=== PATIENT | female | born 1955 | race Caucasian/White ===

== ENCOUNTER 2017-03-27 08:36 | Inpatient (IN) | payer OTHER ==
[2017-03-27] MEDS: IPRATROPIUM (NEB) 0.5 MG/2.5 ML AMP INH (09:59)
[2017-03-27] MEDS: ALBUTEROL 0.5% (NEB) 2.5 MG/0.5 ML AMP INH (09:59)
[2017-03-27] MEDS: METHYLPREDNISOLONE 125 MG INJ IV (10:27)
[2017-03-27] MEDS: MAGNESIUM SULFATE 2 GM/50 ML 50 ML IVPB (10:27)
[2017-03-27] MEDS: FUROSEMIDE 40 MG INJ IV (10:28)
[2017-03-27] MEDS: ASPIRIN 81 MG TAB PO (10:28)
[2017-03-27 10:54] LABS: ADD MAN DIFF? NO
[2017-03-27 10:59] LABS: WHITE BLOOD COUNT 6.4 10^3/ul (4.8-10.8)
[2017-03-27 10:59] LABS: BASOPHILS % 0.5 % (0.0-2.0); EOSINOPHILS # 0.2 10^3/ul (0.0-0.5); EOSINOPHILS % 2.7 % (0.0-7.0); HEMATOCRIT 41.3 % (37.0-47.0); HEMOGLOBIN 12.6 g/dl (12.0-16.0); LYMPHOCYTES # 1.7 10^3/ul (0.8-2.9); LYMPHOCYTES % 26.4 % (15.0-51.0); MEAN CORPUSCULAR HEMOGLOBIN 32.3 pg (29.0-33.0); MEAN CORPUSCULAR HGB CONC 30.5 g/dl (32.0-37.0); MEAN CORPUSCULAR VOLUME 105.9 fl (82.0-101.0); MEAN PLATELET VOLUME 9.7 fl (7.4-10.4); MONOCYTE # 0.7 10^3/ul (0.3-0.9); MONOCYTES % 10.8 % (0.0-11.0); NEUTROPHIL # 3.8 10^3/ul (1.6-7.5); NEUTROPHILS % 59.3 % (39.0-77.0); PLATELET COUNT 144 10^3/UL (140-415); RED CELL DISTRIBUTION WIDTH 13.3 % (11.5-14.5)
[2017-03-27 11:25] LABS: ALBUMIN/GLOBULIN RATIO 1.06
[2017-03-27 11:28] LABS: ALANINE AMINOTRANSFERASE 52 IU/L (13-69); ALBUMIN 3.2 g/dl (3.3-4.9); ALKALINE PHOSPHATASE 136 IU/L (42-121); ASPARTATE AMINO TRANSFERASE 54 IU/L (15-46); BILIRUBIN,INDIRECT 0.3 mg/dl (0-1.1); BILIRUBIN,TOTAL 0.3 mg/dl (0.2-1.3); BLOOD UREA NITROGEN 8 mg/dl (7-20); CHLORIDE 91 mmol/L (97-110); CREATININE 1.15 mg/dl (0.44-1.00); GLUCOSE 107 mg/dl (70-220); LIPASE 95 U/L (23-300); POTASSIUM 4.1 mmol/L (3.5-5.1); SODIUM 139 mmol/L (135-144); TOTAL PROTEIN 6.2 g/dl (6.1-8.1)
[2017-03-27 11:42] LABS: ANION GAP 12 (8-16)
[2017-03-27 11:46] LABS: CARBON DIOXIDE 40 mmol/L (21-31)
[2017-03-27 11:50] LABS: B-TYPE NATRIURETIC PEPTIDE 252 PG/ML (0-125)
[2017-03-27 11:55] LABS: TROPONIN-I < 0.012 ng/ml (0.00-0.12)
[2017-03-27 12:15] LABS: AADO2 Arterial 74.7 mmHg (7.0-24.0); Allen Test ACCEPTAB; Arterial Base Excess 9.5 mmol/L (-3.0-3); Arterial Blood Gas Oxygen Sat 87.5 mmHG (95.0-98.0); Arterial COHb 2.1 % (0.0-3.0); Arterial Fraction of Oxyhgb 85.4 % (93.0-99.0); Arterial MetHb 0.3 % (0.0-1.5); Arterial Total Hemglobin 13.5 g/dl (12.0-18.0); Arterial pCO2 88.8 mmhg (35-45); MODE NASAL CANNULA; Site Right Radial
[2017-03-27] MEDS ORDERED: VANCOMYCIN IV PER PHARMACY XX (14:30)
[2017-03-27] MEDS ORDERED: ALBUTEROL/IPRATROPIUM (NEB) 3 ML AMP HHN (14:30)
[2017-03-27] MEDS ORDERED: NACL 0.9% 3 ML SYG IV (15:00)
[2017-03-27] MEDS ORDERED: ONDANSETRON 4 MG INJ IV (15:00)
[2017-03-27] MEDS ORDERED: ACETAMINOPHEN 325 MG TAB PO (15:00)
[2017-03-27] MEDS ORDERED: VANCOMYCIN 1.25 GM in SODIUM CHLORIDE 0.45 % 250 ML IVPB (15:00)
[2017-03-27] MEDS: VANCOMYCIN 1.75 GM in NS 500 ML IVPB (15:21)
[2017-03-27 15:34] LABS: URIC ACID 10.8 mg/dl (3.1-7.9)
[2017-03-27] MEDS: ALBUMIN HUMAN 25% 100 ML IV (17:40)
[2017-03-27] MEDS: ALBUTEROL/IPRATROPIUM (NEB) 3 ML AMP HHN (20:53)
[2017-03-27] MEDS: HEPARIN 5,000 UNIT/0.5 ML VIAL SC (21:27)
[2017-03-27] MEDS: SALMETEROL/FLUTICASONE 500/50 INHA INH (22:00)
[2017-03-27] MEDS: MONTELUKAST 10 MG TAB PO (22:00)
[2017-03-28] MEDS: ALBUTEROL/IPRATROPIUM (NEB) 3 ML AMP HHN ×3 (01:42→08:07)
[2017-03-28] MEDS ORDERED: VANCOMYCIN 750 MG in DEXTROSE 5% 150 ML IVPB (04:00)
[2017-03-28] MEDS: PANTOPRAZOLE (EC) 40 MG TAB PO (05:58)
[2017-03-28 08:38] LABS: ADD MAN DIFF? NO
[2017-03-28 08:47] LABS: BASOPHILS % 0.1 % (0.0-2.0); EOSINOPHILS % 0.3 % (0.0-7.0); HEMATOCRIT 37.6 % (37.0-47.0); HEMOGLOBIN 11.5 g/dl (12.0-16.0); LYMPHOCYTES # 1.1 10^3/ul (0.8-2.9); LYMPHOCYTES % 14.3 % (15.0-51.0); MEAN CORPUSCULAR HEMOGLOBIN 32.3 pg (29.0-33.0); MEAN CORPUSCULAR HGB CONC 30.6 g/dl (32.0-37.0); MEAN CORPUSCULAR VOLUME 105.6 fl (82.0-101.0); MEAN PLATELET VOLUME 10.2 fl (7.4-10.4); MONOCYTE # 0.8 10^3/ul (0.3-0.9); MONOCYTES % 9.5 % (0.0-11.0); NEUTROPHIL # 5.9 10^3/ul (1.6-7.5); NEUTROPHILS % 75.4 % (39.0-77.0); PLATELET COUNT 141 10^3/UL (140-415); RED BLOOD COUNT 3.56 10^6/ul (4.20-5.40); RED CELL DISTRIBUTION WIDTH 13.1 % (11.5-14.5)
[2017-03-28 08:47] LABS: WHITE BLOOD COUNT 7.9 10^3/ul (4.8-10.8)
[2017-03-28 08:58] LABS: HEMOGLOBIN A1C 5.7 % (0-5.9)
[2017-03-28] MEDS ORDERED: PANTOPRAZOLE (EC) 40 MG TAB PO (09:00)
[2017-03-28] MEDS: TIOTROPIUM 18 MCG CAPSULE INHA DEV INH (09:00)
[2017-03-28] MEDS: SALMETEROL/FLUTICASONE 500/50 INHA INH (09:06)
[2017-03-28] MEDS: ASPIRIN (EC) 81 MG TAB PO (09:06)
[2017-03-28 09:12] LABS: ANION GAP 12 (8-16); BLOOD UREA NITROGEN 22 mg/dl (7-20); CALCIUM 8.2 mg/dl (8.4-10.2); CARBON DIOXIDE 37 mmol/L (21-31); CHLORIDE 92 mmol/L (97-110); CHOL/HDL RATIO 2.6 RATIO; CHOLESTEROL 126 mg/dl (100-200); CREATININE 1.52 mg/dl (0.44-1.00); GLUCOSE 147 mg/dl (70-220); HDL CHOLESTEROL 47 mg/dl (35-98); LDL CHOLESTEROL,CALCULATED 62 mg/dl; POTASSIUM 4.3 mmol/L (3.5-5.1); SODIUM 137 mmol/L (135-144); TRIGLYCERIDES 83 mg/dl (0-149)
[2017-03-28] MEDS: HEPARIN 5,000 UNIT/0.5 ML VIAL SC (09:14)
[2017-03-28 09:19] LABS: PREALBUMIN 7.8 mg/dl (17.6-36.0)
[2017-03-28 14:16] LABS: THYROID STIMULATING HORMONE 0.824 MIU/L (0.465-4.680)
[2017-03-28] MEDS ORDERED: VANCOMYCIN 1.5 GM in DEXTROSE 5% 500 ML IVPB (15:00)
== END 2017-03-28 10:00 | disposition left against medical advice (07) | DRG 191 ==
LOC: E/R 08:36 → MS4 12:52
DX: J44.1 Chronic obstructive pulmonary disease with (acute) exacerbation (principal); L03.116 Cellulitis of left lower limb; I50.9 Heart failure, unspecified; L03.115 Cellulitis of right lower limb; R06.89 Other abnormalities of breathing; T40.3X1A Poisoning by methadone, accidental (unintentional), initial encounter; Y92.009 Unspecified place in unspecified non-institutional (private) residence as the place of occurrence of the external cause; N18.9 Chronic kidney disease, unspecified; Z99.81 Dependence on supplemental oxygen
CPT/HCPCS: 36600; 71010; 80048; 80053; 80061; 82803; 83036; 83690; 83735; 83880; 84100; 84134; 84443; 84484; 84560; 85025; 87040; 87400; 93005; 93922; 93970; 94640; 94644; 96374; 96375; 99291-25

== ENCOUNTER 2017-04-05 20:41 | Emergency (ER) | payer SELFPAY, OTHER | END 2017-04-05 21:22 | disposition left against medical advice (07) | LOC: E/R 20:41 | DX: Z53.21 Procedure and treatment not carried out due to patient leaving prior to being seen by health care provider (principal) ==

== ENCOUNTER 2017-04-07 03:58 | Inpatient (IN) | payer OTHER ==
[2017-04-07] MEDS ORDERED: NACL 0.9% 3 ML SYG IV (04:30)
[2017-04-07] MEDS ORDERED: ONDANSETRON 4 MG INJ IV (04:30)
[2017-04-07] MEDS ORDERED: traMADol 50 MG TAB PO (04:30)
[2017-04-07] MEDS: PANTOPRAZOLE (EC) 40 MG TAB PO (06:29)
[2017-04-07] MEDS: morphine 2 MG INJ IV ×2 (06:39→10:34)
[2017-04-07 06:48] LABS: ADD MAN DIFF? NO
[2017-04-07] MEDS: METHADONE 10 MG TAB PO ×2 (07:54→11:22)
[2017-04-07 08:09] LABS: ALANINE AMINOTRANSFERASE 37 IU/L (13-69); ALBUMIN 3.9 g/dl (3.3-4.9); ALBUMIN/GLOBULIN RATIO 1.39; ALKALINE PHOSPHATASE 135 IU/L (42-121); ANION GAP 21 (8-16); ASPARTATE AMINO TRANSFERASE 64 IU/L (15-46); BILIRUBIN,INDIRECT 0.2 mg/dl (0-1.1); BILIRUBIN,TOTAL 0.2 mg/dl (0.2-1.3); BLOOD UREA NITROGEN 32 mg/dl (7-20); CALCIUM 9.1 mg/dl (8.4-10.2); CARBON DIOXIDE 27 mmol/L (21-31); CHLORIDE 97 mmol/L (97-110); CREATININE 1.78 mg/dl (0.44-1.00); GLUCOSE 93 mg/dl (70-220); MAGNESIUM 2.1 mg/dl (1.7-2.5); PHOSPHORUS 5.2 mg/dl (2.5-4.9); POTASSIUM 4.8 mmol/L (3.5-5.1); SODIUM 140 mmol/L (135-144); TOTAL PROTEIN 6.7 g/dl (6.1-8.1)
[2017-04-07] MEDS: TIOTROPIUM 18 MCG CAPSULE INHA DEV INH (08:51)
[2017-04-07] MEDS: SALMETEROL/FLUTICASONE 500/50 INHA INH ×2 (08:51→20:51)
[2017-04-07] MEDS: HEPARIN 5,000 UNIT/0.5 ML VIAL SC ×3 (08:52→20:53)
[2017-04-07 08:57] LABS: INR 0.94; PARTIAL THROMBOPLASTIN TIME 28.2 Sec (25.0-35.0); PROTIME 12.7 Sec (11.9-14.9)
[2017-04-07 09:25] LABS: WHITE BLOOD COUNT 6.2 10^3/ul (4.8-10.8)
[2017-04-07 09:25] LABS: BASOPHILS % 0.3 % (0.0-2.0); EOSINOPHILS # 0.2 10^3/ul (0.0-0.5); EOSINOPHILS % 3.3 % (0.0-7.0); HEMATOCRIT 40.6 % (37.0-47.0); LYMPHOCYTES # 1.7 10^3/ul (0.8-2.9); LYMPHOCYTES % 28.1 % (15.0-51.0); MEAN CORPUSCULAR HEMOGLOBIN 32.7 pg (29.0-33.0); MEAN PLATELET VOLUME 9.9 fl (7.4-10.4); MONOCYTE # 0.6 10^3/ul (0.3-0.9); MONOCYTES % 10.1 % (0.0-11.0); NEUTROPHIL # 3.6 10^3/ul (1.6-7.5); PLATELET COUNT 159 10^3/UL (140-415); RED BLOOD COUNT 3.98 10^6/ul (4.20-5.40); RED CELL DISTRIBUTION WIDTH 13.5 % (11.5-14.5)
[2017-04-07 11:40] LABS: TROPONIN-I < 0.012 ng/ml (0.00-0.12)
[2017-04-07] MEDS: HYDROmorphONE 1 MG/ML SYG IV ×3 (13:49→22:24)
[2017-04-08] MEDS ORDERED: LORAZEPAM 2 MG INJ IV (00:30)
[2017-04-08] MEDS: ZOLPIDEM 5 MG TAB PO ×2 (00:50→21:16)
[2017-04-08] MEDS: HYDROmorphONE 1 MG/ML SYG IV ×4 (02:37→18:13)
[2017-04-08] MEDS ORDERED: LORAZEPAM 0.5 MG TAB PO (05:00)
[2017-04-08] MEDS: PANTOPRAZOLE (EC) 40 MG TAB PO (05:02)
[2017-04-08] MEDS: LORAZEPAM 1 MG TAB PO ×2 (05:02→22:16)
[2017-04-08 05:04] LABS: ADD MAN DIFF? NO
[2017-04-08 05:12] LABS: WHITE BLOOD COUNT 6.1 10^3/ul (4.8-10.8)
[2017-04-08 05:12] LABS: BASOPHILS % 0.7 % (0.0-2.0); EOSINOPHILS # 0.3 10^3/ul (0.0-0.5); EOSINOPHILS % 5.6 % (0.0-7.0); HEMATOCRIT 43.6 % (37.0-47.0); HEMOGLOBIN 13.5 g/dl (12.0-16.0); LYMPHOCYTES # 1.8 10^3/ul (0.8-2.9); LYMPHOCYTES % 29.3 % (15.0-51.0); MEAN CORPUSCULAR HEMOGLOBIN 32.2 pg (29.0-33.0); MEAN CORPUSCULAR VOLUME 104.1 fl (82.0-101.0); MONOCYTE # 0.7 10^3/ul (0.3-0.9); MONOCYTES % 11.5 % (0.0-11.0); NEUTROPHIL # 3.2 10^3/ul (1.6-7.5); NEUTROPHILS % 52.4 % (39.0-77.0); PLATELET COUNT 153 10^3/UL (140-415); RED BLOOD COUNT 4.19 10^6/ul (4.20-5.40); RED CELL DISTRIBUTION WIDTH 13.6 % (11.5-14.5)
[2017-04-08 05:40] LABS: ANION GAP 15 (8-16); BLOOD UREA NITROGEN 24 mg/dl (7-20); CALCIUM 9.1 mg/dl (8.4-10.2); CARBON DIOXIDE 36 mmol/L (21-31); CHLORIDE 95 mmol/L (97-110); CREATININE 1.41 mg/dl (0.44-1.00); GLUCOSE 128 mg/dl (70-220); MAGNESIUM 2.1 mg/dl (1.7-2.5); PHOSPHORUS 4.4 mg/dl (2.5-4.9); SODIUM 141 mmol/L (135-144)
[2017-04-08] MEDS: SALMETEROL/FLUTICASONE 500/50 INHA INH ×2 (08:49→21:06)
[2017-04-08] MEDS: HEPARIN 5,000 UNIT/0.5 ML VIAL SC ×2 (08:50→21:15)
[2017-04-08] MEDS: TIOTROPIUM 18 MCG CAPSULE INHA DEV INH (08:50)
[2017-04-08] MEDS: METHADONE 10 MG TAB PO (09:58)
[2017-04-08] MEDS: HYDROmorphONE 2 MG/ML SYG IV (23:39)
[2017-04-08] MEDS: LORAZEPAM 2 MG INJ IV (23:47)
[2017-04-09] MEDS: HYDROmorphONE 2 MG/ML SYG IV ×3 (02:55→16:55)
[2017-04-09] MEDS: PANTOPRAZOLE (EC) 40 MG TAB PO (05:45)
[2017-04-09] MEDS: HEPARIN 5,000 UNIT/0.5 ML VIAL SC ×3 (08:49→20:46)
[2017-04-09] MEDS: TIOTROPIUM 18 MCG CAPSULE INHA DEV INH (08:53)
[2017-04-09] MEDS: SALMETEROL/FLUTICASONE 500/50 INHA INH ×2 (08:53→20:46)
[2017-04-09] MEDS: METHADONE (1 MG/ML 5 ML PO UD SYG) PO ×2 (09:55→10:24)
[2017-04-09 10:58] LABS: ADD MAN DIFF? NO
[2017-04-09 11:06] LABS: WHITE BLOOD COUNT 4.3 10^3/ul (4.8-10.8)
[2017-04-09 11:06] LABS: BASOPHILS % 0.5 % (0.0-2.0); EOSINOPHILS # 0.3 10^3/ul (0.0-0.5); EOSINOPHILS % 6.1 % (0.0-7.0); HEMATOCRIT 42.2 % (37.0-47.0); HEMOGLOBIN 13.1 g/dl (12.0-16.0); LYMPHOCYTES # 1.1 10^3/ul (0.8-2.9); MEAN CORPUSCULAR HEMOGLOBIN 32.4 pg (29.0-33.0); MEAN CORPUSCULAR VOLUME 104.5 fl (82.0-101.0); MEAN PLATELET VOLUME 10.1 fl (7.4-10.4); MONOCYTE # 0.4 10^3/ul (0.3-0.9); MONOCYTES % 10.1 % (0.0-11.0); NEUTROPHIL # 2.4 10^3/ul (1.6-7.5); NEUTROPHILS % 57.1 % (39.0-77.0); PLATELET COUNT 157 10^3/UL (140-415); RED BLOOD COUNT 4.04 10^6/ul (4.20-5.40); RED CELL DISTRIBUTION WIDTH 13.2 % (11.5-14.5)
[2017-04-09 11:24] LABS: ANION GAP 11 (8-16)
[2017-04-09 11:26] LABS: ALANINE AMINOTRANSFERASE 43 IU/L (13-69); ALBUMIN 3.4 g/dl (3.3-4.9); ALBUMIN/GLOBULIN RATIO 1.06; ALKALINE PHOSPHATASE 120 IU/L (42-121); ANION GAP 12 (8-16); ASPARTATE AMINO TRANSFERASE 54 IU/L (15-46); BILIRUBIN,INDIRECT 0.2 mg/dl (0-1.1); BILIRUBIN,TOTAL 0.2 mg/dl (0.2-1.3); BLOOD UREA NITROGEN 22 mg/dl (7-20); CALCIUM 9.4 mg/dl (8.4-10.2); CARBON DIOXIDE 34 mmol/L (21-31); CHLORIDE 96 mmol/L (97-110); CREATININE 1.07 mg/dl (0.44-1.00); GLUCOSE 143 mg/dl (70-220); POTASSIUM 4.7 mmol/L (3.5-5.1); SODIUM 137 mmol/L (135-144); TOTAL PROTEIN 6.6 g/dl (6.1-8.1)
[2017-04-09 11:27] LABS: PHOSPHORUS 3.3 mg/dl (2.5-4.9)
[2017-04-09 11:27] LABS: CHOL/HDL RATIO 2.8 RATIO; CHOLESTEROL 127 mg/dl (100-200); HDL CHOLESTEROL 45 mg/dl (35-98); LDL CHOLESTEROL,CALCULATED 54 mg/dl; MAGNESIUM 1.9 mg/dl (1.7-2.5); TRIGLYCERIDES 141 mg/dl (0-149)
[2017-04-09 11:32] LABS: BLOOD UREA NITROGEN 23 mg/dl (7-20); CALCIUM 9.5 mg/dl (8.4-10.2); CARBON DIOXIDE 37 mmol/L (21-31); CHLORIDE 94 mmol/L (97-110); CREATININE 1.08 mg/dl (0.44-1.00); GLUCOSE 145 mg/dl (70-220); POTASSIUM 4.8 mmol/L (3.5-5.1); SODIUM 137 mmol/L (135-144)
[2017-04-09 11:39] LABS: FREE T4 (FREE THYROXINE) 1.23 ng/dl (0.78-2.44)
[2017-04-09 11:54] LABS: HEMOGLOBIN A1C 5.4 % (0-5.9)
[2017-04-10] MEDS: morphine 2 MG INJ IV ×2 (00:32→12:48)
[2017-04-10] MEDS: PANTOPRAZOLE (EC) 40 MG TAB PO (03:46)
[2017-04-10] MEDS: ALBUTEROL/IPRATROPIUM (NEB) 3 ML AMP HHN ×2 (04:37→21:12)
[2017-04-10 06:32] LABS: ADD MAN DIFF? NO
[2017-04-10 06:34] LABS: WHITE BLOOD COUNT 6.8 10^3/ul (4.8-10.8)
[2017-04-10 06:34] LABS: BASOPHILS % 0.6 % (0.0-2.0); EOSINOPHILS # 0.6 10^3/ul (0.0-0.5); EOSINOPHILS % 8.1 % (0.0-7.0); HEMOGLOBIN 13.6 g/dl (12.0-16.0); LYMPHOCYTES # 1.7 10^3/ul (0.8-2.9); LYMPHOCYTES % 25.3 % (15.0-51.0); MEAN CORPUSCULAR HEMOGLOBIN 32.9 pg (29.0-33.0); MEAN CORPUSCULAR HGB CONC 31.6 g/dl (32.0-37.0); MEAN CORPUSCULAR VOLUME 103.9 fl (82.0-101.0); MONOCYTE # 0.8 10^3/ul (0.3-0.9); MONOCYTES % 11.3 % (0.0-11.0); NEUTROPHIL # 3.7 10^3/ul (1.6-7.5); NEUTROPHILS % 54.3 % (39.0-77.0); PLATELET COUNT 181 10^3/UL (140-415); RED BLOOD COUNT 4.14 10^6/ul (4.20-5.40); RED CELL DISTRIBUTION WIDTH 13.6 % (11.5-14.5)
[2017-04-10 07:04] LABS: PHOSPHORUS 4.5 mg/dl (2.5-4.9)
[2017-04-10 07:05] LABS: ANION GAP 14 (8-16); BLOOD UREA NITROGEN 28 mg/dl (7-20); CALCIUM 9.4 mg/dl (8.4-10.2); CARBON DIOXIDE 34 mmol/L (21-31); CHLORIDE 99 mmol/L (97-110); CREATININE 1.21 mg/dl (0.44-1.00); GLUCOSE 125 mg/dl (70-220); POTASSIUM 4.7 mmol/L (3.5-5.1); SODIUM 142 mmol/L (135-144)
[2017-04-10] MEDS: HEPARIN 5,000 UNIT/0.5 ML VIAL SC (08:21)
[2017-04-10] MEDS: METHADONE (1 MG/ML 5 ML PO UD SYG) PO (08:58)
[2017-04-10] MEDS: SALMETEROL/FLUTICASONE 500/50 INHA INH ×2 (08:58→21:00)
[2017-04-10] MEDS: TIOTROPIUM 18 MCG CAPSULE INHA DEV INH (08:58)
[2017-04-10] MEDS ORDERED: MIDAZOLAM 1 MG/ML 2 ML INJ (16:18)
[2017-04-10] MEDS ORDERED: morphine SULFATE/PF (10 MG/10 ML) INJ (16:40)
[2017-04-10] MEDS ORDERED: PHENYLephrine (100 MCG/ML) 5ML SYG (16:57)
[2017-04-10] MEDS: POLYMYXIN/BACITRACIN 1L IRRIG (18:17)
[2017-04-10] MEDS ORDERED: ETOMIDATE 20 MG INJ (18:57)
[2017-04-10] MEDS ORDERED: ONDANSETRON 4 MG INJ (18:57)
[2017-04-10] MEDS ORDERED: CEFAZOLIN 1 GM INJ (18:57)
[2017-04-10] MEDS ORDERED: LIDOCAINE 2% (SDV) 5 ML INJ (18:57)
[2017-04-10] MEDS ORDERED: EPHEDrine SULFATE 50 MG/5 ML SYG IV (19:30)
[2017-04-10] MEDS ORDERED: NACL 0.9% 3 ML SYG IV (19:30)
[2017-04-10] MEDS ORDERED: MEPERIDINE 25 MG INJ IV (19:30)
[2017-04-10] MEDS ORDERED: METOCLOPRAMIDE 10 MG INJ IV (19:30)
[2017-04-10] MEDS ORDERED: DIPHENHYDRAMINE 50 MG INJ IV (19:30)
[2017-04-10] MEDS: CEFAZOLIN 1 GM/50 ML (PMX) 50 ML IVPB (19:30)
[2017-04-10] MEDS ORDERED: FENTAnyl 50 MCG/ML VIAL IV (19:30)
[2017-04-10] MEDS ORDERED: NALOXONE (0.4 MG/ML) INJ IV (19:30)
[2017-04-10] MEDS ORDERED: ONDANSETRON 4 MG INJ IV (19:30)
[2017-04-10] MEDS ORDERED: HYDROCODONE/APAP (5/325) TAB PO (19:30)
[2017-04-10 19:52] LABS: HEMATOCRIT 39.3 % (37.0-47.0); HEMOGLOBIN 12.1 g/dl (12.0-16.0)
[2017-04-10 20:11] LABS: ANION GAP 11 (8-16); BLOOD UREA NITROGEN 27 mg/dl (7-20); CALCIUM 8.5 mg/dl (8.4-10.2); CARBON DIOXIDE 32 mmol/L (21-31); CHLORIDE 101 mmol/L (97-110); CREATININE 1.14 mg/dl (0.44-1.00); GLUCOSE 84 mg/dl (70-220); SODIUM 140 mmol/L (135-144)
[2017-04-10] MEDS: D5W-0.45 NACL + KCL 10 MEQ 1,000 ML IV (20:30)
[2017-04-10] MEDS ORDERED: ALBUTEROL 0.5% (NEB) 2.5 MG/0.5 ML AMP (21:01)
[2017-04-10] MEDS: FUROSEMIDE 20 MG INJ IV (21:36)
[2017-04-10] MEDS: HYDROmorphONE (0.2 MG/ML) 10ML SYG IV ×4 (21:48→22:27)
[2017-04-10] MEDS: HYDROmorphONE 1 MG/ML SYG IV (22:34)
[2017-04-11] MEDS: morphine 2 MG INJ IV ×2 (00:11→16:52)
[2017-04-11] MEDS: HYDROmorphONE 1 MG/ML SYG IV ×3 (01:52→14:01)
[2017-04-11] MEDS: CEFAZOLIN 1 GM/50 ML (PMX) 50 ML IVPB ×2 (02:45→08:44)
[2017-04-11] MEDS: D5W-0.45 NACL + KCL 10 MEQ 1,000 ML IV ×4 (04:30→22:37)
[2017-04-11] MEDS: PANTOPRAZOLE (EC) 40 MG TAB PO (05:21)
[2017-04-11 07:43] LABS: ADD MAN DIFF? NO
[2017-04-11 07:47] LABS: BASOPHILS % 0.3 % (0.0-2.0); EOSINOPHILS # 0.2 10^3/ul (0.0-0.5); EOSINOPHILS % 2.6 % (0.0-7.0); HEMOGLOBIN 11.6 g/dl (12.0-16.0); LYMPHOCYTES # 0.9 10^3/ul (0.8-2.9); LYMPHOCYTES % 10.2 % (15.0-51.0); MEAN CORPUSCULAR HEMOGLOBIN 32.6 pg (29.0-33.0); MEAN CORPUSCULAR HGB CONC 30.5 g/dl (32.0-37.0); MEAN CORPUSCULAR VOLUME 106.7 fl (82.0-101.0); MEAN PLATELET VOLUME 10.1 fl (7.4-10.4); MONOCYTE # 0.8 10^3/ul (0.3-0.9); MONOCYTES % 8.5 % (0.0-11.0); NEUTROPHIL # 6.9 10^3/ul (1.6-7.5); NEUTROPHILS % 77.9 % (39.0-77.0); PLATELET COUNT 169 10^3/UL (140-415); RED BLOOD COUNT 3.56 10^6/ul (4.20-5.40); RED CELL DISTRIBUTION WIDTH 13.2 % (11.5-14.5)
[2017-04-11 07:47] LABS: WHITE BLOOD COUNT 8.8 10^3/ul (4.8-10.8)
[2017-04-11] MEDS: METHADONE 10 MG TAB PO (08:09)
[2017-04-11] MEDS: ENOXAPARIN 40 MG/0.4 ML SYG SC (08:14)
[2017-04-11 08:18] LABS: ANION GAP 15 (8-16); BLOOD UREA NITROGEN 22 mg/dl (7-20); CALCIUM 8.4 mg/dl (8.4-10.2); CARBON DIOXIDE 30 mmol/L (21-31); CHLORIDE 96 mmol/L (97-110); CREATININE 1.07 mg/dl (0.44-1.00); GLUCOSE 185 mg/dl (70-220); POTASSIUM 4.5 mmol/L (3.5-5.1); SODIUM 136 mmol/L (135-144)
[2017-04-11 08:20] LABS: MAGNESIUM 1.4 mg/dl (1.7-2.5)
[2017-04-11 08:20] LABS: PHOSPHORUS 3.3 mg/dl (2.5-4.9)
[2017-04-11] MEDS: TIOTROPIUM 18 MCG CAPSULE INHA DEV INH (08:38)
[2017-04-11] MEDS: SALMETEROL/FLUTICASONE 500/50 INHA INH ×2 (08:38→20:47)
[2017-04-11] MEDS: FUROSEMIDE 20 MG INJ IV (08:38)
[2017-04-11] MEDS: MAGNESIUM SULFATE 3 GM in DEXTROSE 5% 100 ML IVPB (10:50)
[2017-04-12] MEDS: HYDROmorphONE 1 MG/ML SYG IV ×6 (00:47→21:02)
[2017-04-12] MEDS: D5W-0.45 NACL + KCL 10 MEQ 1,000 ML IV ×2 (04:30→10:48)
[2017-04-12] MEDS: PANTOPRAZOLE (EC) 40 MG TAB PO (06:58)
[2017-04-12] MEDS ORDERED: METHADONE 10 MG TAB PO (07:25)
[2017-04-12] MEDS: TIOTROPIUM 18 MCG CAPSULE INHA DEV INH (08:28)
[2017-04-12] MEDS: METHADONE (1 MG/1 ML PO SYG) PO (08:28)
[2017-04-12] MEDS: SALMETEROL/FLUTICASONE 500/50 INHA INH ×2 (08:28→21:02)
[2017-04-12] MEDS: FUROSEMIDE 20 MG INJ IV (08:29)
[2017-04-12] MEDS: ENOXAPARIN 40 MG/0.4 ML SYG SC (08:39)
[2017-04-12 11:17] LABS: ADD MAN DIFF? NO
[2017-04-12 11:36] LABS: WHITE BLOOD COUNT 8.9 10^3/ul (4.8-10.8)
[2017-04-12 11:36] LABS: BASOPHILS % 0.2 % (0.0-2.0); EOSINOPHILS # 0.4 10^3/ul (0.0-0.5); EOSINOPHILS % 4.3 % (0.0-7.0); HEMATOCRIT 30.7 % (37.0-47.0); HEMOGLOBIN 9.8 g/dl (12.0-16.0); LYMPHOCYTES # 1.2 10^3/ul (0.8-2.9); LYMPHOCYTES % 13.1 % (15.0-51.0); MEAN CORPUSCULAR HEMOGLOBIN 32.9 pg (29.0-33.0); MEAN CORPUSCULAR HGB CONC 31.9 g/dl (32.0-37.0); MEAN PLATELET VOLUME 10.3 fl (7.4-10.4); MONOCYTE # 1.1 10^3/ul (0.3-0.9); MONOCYTES % 12.6 % (0.0-11.0); NEUTROPHIL # 6.2 10^3/ul (1.6-7.5); NEUTROPHILS % 69.4 % (39.0-77.0); PLATELET COUNT 149 10^3/UL (140-415); RED BLOOD COUNT 2.98 10^6/ul (4.20-5.40); RED CELL DISTRIBUTION WIDTH 13.3 % (11.5-14.5)
[2017-04-12 11:48] LABS: PHOSPHORUS 3.1 mg/dl (2.5-4.9)
[2017-04-12 11:48] LABS: MAGNESIUM 1.9 mg/dl (1.7-2.5)
[2017-04-12 11:53] LABS: BLOOD UREA NITROGEN 18 mg/dl (7-20); CALCIUM 8.3 mg/dl (8.4-10.2); CARBON DIOXIDE 33 mmol/L (21-31); CHLORIDE 97 mmol/L (97-110); CREATININE 0.89 mg/dl (0.44-1.00); GLUCOSE 94 mg/dl (70-220); POTASSIUM 4.3 mmol/L (3.5-5.1)
[2017-04-12 12:17] LABS: ANION GAP 9 (8-16); SODIUM 135 mmol/L (135-144)
[2017-04-12] MEDS: ZOLPIDEM 5 MG TAB PO (21:27)
[2017-04-13] MEDS: HYDROmorphONE 1 MG/ML SYG IV ×4 (00:21→09:59)
[2017-04-13] MEDS: DOCUSATE SODIUM 100 MG CAP PO (05:35)
[2017-04-13] MEDS: PANTOPRAZOLE (EC) 40 MG TAB PO (05:35)
[2017-04-13] MEDS: POLYETHYLENE GLYCOL 17 GM PACKET PO ×2 (05:35→08:26)
[2017-04-13 07:20] LABS: ADD MAN DIFF? NO
[2017-04-13 07:23] LABS: WHITE BLOOD COUNT 7.5 10^3/ul (4.8-10.8)
[2017-04-13 07:23] LABS: BASOPHILS % 0.3 % (0.0-2.0); EOSINOPHILS # 0.6 10^3/ul (0.0-0.5); EOSINOPHILS % 8.4 % (0.0-7.0); HEMATOCRIT 29.3 % (37.0-47.0); HEMOGLOBIN 9.3 g/dl (12.0-16.0); LYMPHOCYTES # 1.1 10^3/ul (0.8-2.9); LYMPHOCYTES % 14.5 % (15.0-51.0); MEAN CORPUSCULAR HGB CONC 31.7 g/dl (32.0-37.0); MEAN CORPUSCULAR VOLUME 103.9 fl (82.0-101.0); MEAN PLATELET VOLUME 10.7 fl (7.4-10.4); MONOCYTES % 12.8 % (0.0-11.0); NEUTROPHIL # 4.8 10^3/ul (1.6-7.5); NEUTROPHILS % 63.3 % (39.0-77.0); PLATELET COUNT 158 10^3/UL (140-415); RED BLOOD COUNT 2.82 10^6/ul (4.20-5.40); RED CELL DISTRIBUTION WIDTH 13.2 % (11.5-14.5)
[2017-04-13 07:40] LABS: ANION GAP 8 (8-16); BLOOD UREA NITROGEN 19 mg/dl (7-20); CALCIUM 8.1 mg/dl (8.4-10.2); CARBON DIOXIDE 33 mmol/L (21-31); CHLORIDE 97 mmol/L (97-110); CREATININE 0.88 mg/dl (0.44-1.00); GLUCOSE 93 mg/dl (70-220); POTASSIUM 5.4 mmol/L (3.5-5.1); SODIUM 133 mmol/L (135-144)
[2017-04-13 07:41] LABS: MAGNESIUM 1.9 mg/dl (1.7-2.5)
[2017-04-13 07:41] LABS: PHOSPHORUS 3.2 mg/dl (2.5-4.9)
[2017-04-13] MEDS: TIOTROPIUM 18 MCG CAPSULE INHA DEV INH (08:22)
[2017-04-13] MEDS: METHADONE (1 MG/1 ML PO SYG) PO (08:22)
[2017-04-13] MEDS: FUROSEMIDE 20 MG INJ IV (08:22)
[2017-04-13] MEDS: SALMETEROL/FLUTICASONE 500/50 INHA INH ×2 (08:22→22:31)
[2017-04-13] MEDS: ENOXAPARIN 40 MG/0.4 ML SYG SC (09:47)
[2017-04-13] MEDS: ALBUTEROL 0.083% (NEB) 2.5 MG/3 ML AMP HHN (10:34)
[2017-04-13] MEDS: CALCIUM GLUCONATE 10% 2 GM in DEXTROSE 5% 100 ML IVPB (11:19)
[2017-04-13] MEDS: HYDROCODONE/APAP (5/325) TAB PO ×2 (16:06→20:29)
[2017-04-14] MEDS: HYDROCODONE/APAP (5/325) TAB PO ×5 (00:13→20:53)
[2017-04-14] MEDS: PANTOPRAZOLE (EC) 40 MG TAB PO (05:44)
[2017-04-14 06:14] LABS: ADD MAN DIFF? NO
[2017-04-14 06:18] LABS: WHITE BLOOD COUNT 5.4 10^3/ul (4.8-10.8)
[2017-04-14 06:18] LABS: BASOPHILS % 0.4 % (0.0-2.0); EOSINOPHILS # 0.5 10^3/ul (0.0-0.5); HEMATOCRIT 28.4 % (37.0-47.0); HEMOGLOBIN 8.8 g/dl (12.0-16.0); LYMPHOCYTES # 1.1 10^3/ul (0.8-2.9); LYMPHOCYTES % 20.8 % (15.0-51.0); MEAN CORPUSCULAR HEMOGLOBIN 32.4 pg (29.0-33.0); MEAN CORPUSCULAR VOLUME 104.4 fl (82.0-101.0); MEAN PLATELET VOLUME 10.5 fl (7.4-10.4); MONOCYTE # 0.8 10^3/ul (0.3-0.9); MONOCYTES % 14.3 % (0.0-11.0); NEUTROPHIL # 2.9 10^3/ul (1.6-7.5); NEUTROPHILS % 53.8 % (39.0-77.0); PLATELET COUNT 165 10^3/UL (140-415); RED BLOOD COUNT 2.72 10^6/ul (4.20-5.40)
[2017-04-14 06:42] LABS: ANION GAP 8 (8-16); BLOOD UREA NITROGEN 24 mg/dl (7-20); CALCIUM 8.4 mg/dl (8.4-10.2); CARBON DIOXIDE 35 mmol/L (21-31); CHLORIDE 97 mmol/L (97-110); CREATININE 0.98 mg/dl (0.44-1.00); GLUCOSE 141 mg/dl (70-220); POTASSIUM 3.9 mmol/L (3.5-5.1); SODIUM 136 mmol/L (135-144)
[2017-04-14 06:44] LABS: MAGNESIUM 1.9 mg/dl (1.7-2.5)
[2017-04-14 06:44] LABS: PHOSPHORUS 3.1 mg/dl (2.5-4.9)
[2017-04-14] MEDS: ENOXAPARIN 40 MG/0.4 ML SYG SC (09:00)
[2017-04-14] MEDS: POLYETHYLENE GLYCOL 17 GM PACKET PO (09:00)
[2017-04-14] MEDS: FUROSEMIDE 20 MG INJ IV (09:00)
[2017-04-14] MEDS: SALMETEROL/FLUTICASONE 500/50 INHA INH ×2 (09:00→20:04)
[2017-04-14] MEDS: TIOTROPIUM 18 MCG CAPSULE INHA DEV INH (09:00)
[2017-04-14] MEDS: METHADONE (1 MG/1 ML PO SYG) PO (09:05)
[2017-04-14] MEDS: ZOLPIDEM 5 MG TAB PO (21:52)
[2017-04-14] MEDS: DOCUSATE SODIUM 100 MG CAP PO (22:58)
[2017-04-15] MEDS: HYDROCODONE/APAP (5/325) TAB PO ×5 (01:24→19:04)
[2017-04-15] MEDS: PANTOPRAZOLE (EC) 40 MG TAB PO (05:45)
[2017-04-15 06:01] LABS: ADD MAN DIFF? NO
[2017-04-15 06:16] LABS: WHITE BLOOD COUNT 4.5 10^3/ul (4.8-10.8)
[2017-04-15 06:16] LABS: BASOPHILS % 0.7 % (0.0-2.0); EOSINOPHILS # 0.5 10^3/ul (0.0-0.5); EOSINOPHILS % 12.1 % (0.0-7.0); HEMATOCRIT 29.5 % (37.0-47.0); HEMOGLOBIN 9.2 g/dl (12.0-16.0); LYMPHOCYTES # 1.2 10^3/ul (0.8-2.9); LYMPHOCYTES % 26.2 % (15.0-51.0); MEAN CORPUSCULAR HEMOGLOBIN 32.5 pg (29.0-33.0); MEAN CORPUSCULAR HGB CONC 31.2 g/dl (32.0-37.0); MEAN CORPUSCULAR VOLUME 104.2 fl (82.0-101.0); MONOCYTE # 0.7 10^3/ul (0.3-0.9); MONOCYTES % 14.6 % (0.0-11.0); NEUTROPHILS % 45.5 % (39.0-77.0); PLATELET COUNT 202 10^3/UL (140-415); RED BLOOD COUNT 2.83 10^6/ul (4.20-5.40); RED CELL DISTRIBUTION WIDTH 12.8 % (11.5-14.5)
[2017-04-15 06:28] LABS: MAGNESIUM 1.8 mg/dl (1.7-2.5)
[2017-04-15 06:28] LABS: PHOSPHORUS 3.9 mg/dl (2.5-4.9)
[2017-04-15 06:49] LABS: ANION GAP 8 (8-16); BLOOD UREA NITROGEN 25 mg/dl (7-20); CALCIUM 8.9 mg/dl (8.4-10.2); CARBON DIOXIDE 35 mmol/L (21-31); CHLORIDE 99 mmol/L (97-110); GLUCOSE 101 mg/dl (70-220); SODIUM 138 mmol/L (135-144)
[2017-04-15] MEDS: POLYETHYLENE GLYCOL 17 GM PACKET PO (09:27)
[2017-04-15] MEDS: METHADONE (1 MG/1 ML PO SYG) PO (09:28)
[2017-04-15] MEDS: SALMETEROL/FLUTICASONE 500/50 INHA INH ×2 (09:28→21:27)
[2017-04-15] MEDS: TIOTROPIUM 18 MCG CAPSULE INHA DEV INH (09:28)
[2017-04-15] MEDS: FUROSEMIDE 20 MG INJ IV (09:30)
[2017-04-15] MEDS: ENOXAPARIN 40 MG/0.4 ML SYG SC (09:39)
[2017-04-15] MEDS: ZOLPIDEM 5 MG TAB PO (21:27)
[2017-04-16] MEDS: HYDROCODONE/APAP (5/325) TAB PO ×4 (02:25→18:17)
[2017-04-16] MEDS: PANTOPRAZOLE (EC) 40 MG TAB PO (06:02)
[2017-04-16] MEDS: POLYETHYLENE GLYCOL 17 GM PACKET PO (08:28)
[2017-04-16] MEDS: DOCUSATE SODIUM 100 MG CAP PO (08:28)
[2017-04-16] MEDS: METHADONE (1 MG/1 ML PO SYG) PO (08:28)
[2017-04-16] MEDS: FUROSEMIDE 20 MG INJ IV (08:31)
[2017-04-16] MEDS: SALMETEROL/FLUTICASONE 500/50 INHA INH ×2 (08:31→20:25)
[2017-04-16] MEDS: TIOTROPIUM 18 MCG CAPSULE INHA DEV INH (08:33)
[2017-04-16] MEDS: ENOXAPARIN 40 MG/0.4 ML SYG SC (08:40)
[2017-04-16] MEDS: HYDROmorphONE 2 MG TAB PO (21:58)
[2017-04-17] MEDS: HYDROmorphONE 2 MG TAB PO ×4 (02:01→20:43)
[2017-04-17] MEDS: PANTOPRAZOLE (EC) 40 MG TAB PO (05:59)
[2017-04-17] MEDS: TIOTROPIUM 18 MCG CAPSULE INHA DEV INH (09:14)
[2017-04-17] MEDS: FUROSEMIDE 20 MG INJ IV (09:14)
[2017-04-17] MEDS: POLYETHYLENE GLYCOL 17 GM PACKET PO (09:14)
[2017-04-17] MEDS: SALMETEROL/FLUTICASONE 500/50 INHA INH ×2 (09:14→20:42)
[2017-04-17] MEDS: ENOXAPARIN 40 MG/0.4 ML SYG SC (09:16)
[2017-04-17] MEDS: METHADONE (1 MG/1 ML PO SYG) PO (10:06)
[2017-04-17] MEDS: ACETAMINOPHEN 325 MG TAB PO (23:54)
[2017-04-17] MEDS: ZOLPIDEM 5 MG TAB PO (23:54)
[2017-04-18] MEDS: HYDROmorphONE 2 MG TAB PO ×4 (05:14→22:28)
[2017-04-18] MEDS: PANTOPRAZOLE (EC) 40 MG TAB PO (05:14)
[2017-04-18] MEDS: POLYETHYLENE GLYCOL 17 GM PACKET PO ×2 (09:00→12:50)
[2017-04-18] MEDS: FUROSEMIDE 20 MG INJ IV (09:40)
[2017-04-18] MEDS: TIOTROPIUM 18 MCG CAPSULE INHA DEV INH (09:40)
[2017-04-18] MEDS: SALMETEROL/FLUTICASONE 500/50 INHA INH ×2 (09:40→21:10)
[2017-04-18] MEDS: ENOXAPARIN 40 MG/0.4 ML SYG SC (09:47)
[2017-04-18] MEDS: METHADONE (1 MG/1 ML PO SYG) PO (09:47)
[2017-04-18 11:44] LABS: ADD MAN DIFF? NO
[2017-04-18 11:49] LABS: WHITE BLOOD COUNT 5.3 10^3/ul (4.8-10.8)
[2017-04-18 11:49] LABS: BASOPHILS % 0.4 % (0.0-2.0); EOSINOPHILS # 0.4 10^3/ul (0.0-0.5); EOSINOPHILS % 8.1 % (0.0-7.0); HEMATOCRIT 32.9 % (37.0-47.0); HEMOGLOBIN 10.1 g/dl (12.0-16.0); LYMPHOCYTES # 1.2 10^3/ul (0.8-2.9); LYMPHOCYTES % 22.1 % (15.0-51.0); MEAN CORPUSCULAR HEMOGLOBIN 32.1 pg (29.0-33.0); MEAN CORPUSCULAR HGB CONC 30.7 g/dl (32.0-37.0); MEAN CORPUSCULAR VOLUME 104.4 fl (82.0-101.0); MEAN PLATELET VOLUME 9.1 fl (7.4-10.4); MONOCYTE # 0.6 10^3/ul (0.3-0.9); MONOCYTES % 11.2 % (0.0-11.0); NEUTROPHILS % 56.9 % (39.0-77.0); NUCLEATED RED BLOOD CELLS% 0.4 /100WBC (0.0-0.0); PLATELET COUNT 256 10^3/UL (140-415); RED BLOOD COUNT 3.15 10^6/ul (4.20-5.40); RED CELL DISTRIBUTION WIDTH 13.3 % (11.5-14.5)
[2017-04-18 12:07] LABS: ANION GAP 14 (8-16); BLOOD UREA NITROGEN 18 mg/dl (7-20); CALCIUM 8.8 mg/dl (8.4-10.2); CARBON DIOXIDE 33 mmol/L (21-31); CHLORIDE 98 mmol/L (97-110); CREATININE 1.16 mg/dl (0.44-1.00); GLUCOSE 162 mg/dl (70-220); POTASSIUM 3.7 mmol/L (3.5-5.1); SODIUM 141 mmol/L (135-144)
[2017-04-19] MEDS: HYDROmorphONE 2 MG TAB PO ×3 (01:38→20:07)
[2017-04-19] MEDS: PANTOPRAZOLE (EC) 40 MG TAB PO (05:44)
[2017-04-19] MEDS: METHADONE (1 MG/1 ML PO SYG) PO (08:16)
[2017-04-19] MEDS: TIOTROPIUM 18 MCG CAPSULE INHA DEV INH (08:17)
[2017-04-19] MEDS: SALMETEROL/FLUTICASONE 500/50 INHA INH ×2 (08:17→20:07)
[2017-04-19] MEDS: POLYETHYLENE GLYCOL 17 GM PACKET PO (08:17)
[2017-04-19] MEDS: FUROSEMIDE 20 MG INJ IV (08:18)
[2017-04-19] MEDS: ENOXAPARIN 40 MG/0.4 ML SYG SC (08:22)
[2017-04-19] MEDS: FUROSEMIDE 40 MG INJ IV (15:54)
[2017-04-20] MEDS: FUROSEMIDE 40 MG INJ IV (05:18)
[2017-04-20] MEDS: PANTOPRAZOLE (EC) 40 MG TAB PO (05:19)
[2017-04-20] MEDS: HYDROmorphONE 2 MG TAB PO ×4 (05:19→17:42)
[2017-04-20] MEDS: POLYETHYLENE GLYCOL 17 GM PACKET PO (09:00)
[2017-04-20] MEDS: TIOTROPIUM 18 MCG CAPSULE INHA DEV INH (09:17)
[2017-04-20] MEDS: SALMETEROL/FLUTICASONE 500/50 INHA INH (09:18)
[2017-04-20] MEDS: METHADONE (1 MG/1 ML PO SYG) PO (09:19)
[2017-04-20] MEDS: ENOXAPARIN 40 MG/0.4 ML SYG SC (09:23)
[2017-04-20 14:42] LABS: ALANINE AMINOTRANSFERASE 43 IU/L (13-69); ALBUMIN/GLOBULIN RATIO 0.93; ALKALINE PHOSPHATASE 118 IU/L (42-121); ASPARTATE AMINO TRANSFERASE 37 IU/L (15-46); BILIRUBIN,INDIRECT 0.1 mg/dl (0-1.1); BILIRUBIN,TOTAL 0.1 mg/dl (0.2-1.3); BLOOD UREA NITROGEN 14 mg/dl (7-20); CALCIUM 8.9 mg/dl (8.4-10.2); CHLORIDE 96 mmol/L (97-110); GLUCOSE 139 mg/dl (70-220); POTASSIUM 3.8 mmol/L (3.5-5.1); SODIUM 141 mmol/L (135-144); TOTAL PROTEIN 6.2 g/dl (6.1-8.1)
[2017-04-20 14:48] LABS: ANION GAP 9 (8-16)
[2017-04-20 14:56] LABS: CARBON DIOXIDE 40 mmol/L (21-31)
== END 2017-04-20 18:29 | DRG 470 ==
LOC: PP2 03:58 → MS2 04-13 17:50 → TEL 04-10 23:31
PROC: 0SRR0JZ Replacement of Right Hip Joint, Femoral Surface with Synthetic Substitute, Open Approach (ICD-10-PCS; principal; 2017-04-10 15:30)
PROC: HZ81ZZZ Medication Management for Substance Abuse Treatment, Methadone Maintenance (ICD-10-PCS; 2017-04-10 16:39)
DX: S72.011A Unspecified intracapsular fracture of right femur, initial encounter for closed fracture (principal); Z99.81 Dependence on supplemental oxygen; J44.9 Chronic obstructive pulmonary disease, unspecified; F11.11 Opioid abuse, in remission; N18.9 Chronic kidney disease, unspecified; G89.29 Other chronic pain; Z87.891 Personal history of nicotine dependence; R10.2 Pelvic and perineal pain
CPT/HCPCS: 71045; 73500; 74176; 76700; 76705; 76856; 80048; 80053; 80061; 83036; 83735; 84100; 84439; 84443; 84484; 85014; 85018; 85025; 85610; 85730; 87081; 87086; 88304; 88311; 93005; 93970; 94640; 94664; 97110; 97116; 97163; 97530; J1940

== ENCOUNTER 2017-05-08 09:34 | Emergency (ER) | payer OTHER | END 2017-05-08 10:39 | disposition home or self-care (01) | LOC: E/R 09:34 | DX: L53.9 Erythematous condition, unspecified (principal); J44.9 Chronic obstructive pulmonary disease, unspecified; I50.9 Heart failure, unspecified; Z87.891 Personal history of nicotine dependence; Z79.82 Long term (current) use of aspirin | CPT/HCPCS: 99283; Z7502 ==

== ENCOUNTER → 2017-07-17 | Outpatient (CLI) | payer OTHER ==
[2017-07-17 11:30] LABS: AADO2 Arterial 28.8 mmHg (7.0-24.0); Allen Test ACCEPTAB; Arterial Base Excess 9.2 mmol/L (-3.0-3); Arterial Blood Gas Oxygen Sat 73.6 mmHG (95.0-98.0); Arterial COHb 1.6 % (0.0-3.0); Arterial Fraction of Oxyhgb 72.3 % (93.0-99.0); Arterial HCO3 37.3 mmol/L (22.0-26.0); Arterial MetHb 0.2 % (0.0-1.5); Arterial Total Hemglobin 12.8 g/dl (12.0-18.0); Arterial pCO2 69.5 mmhg (35-45); MODE ROOM AIR; Site Right Radial
== END | disposition home or self-care (01) ==
LOC: PUL 09:26
DX: J44.9 Chronic obstructive pulmonary disease, unspecified (principal)
CPT/HCPCS: 36600; 82803

== ENCOUNTER → 2018-08-11 | Outpatient (CLI) | payer OTHER ==
[2018-08-11 14:11] LABS: AADO2 Arterial 45.5 mmHg (7.0-24.0); Allen Test ACCEPTAB; Arterial Blood Gas Oxygen Sat 80.8 mmHG (95.0-98.0); Arterial COHb 1.3 % (0.0-3.0); Arterial Fraction of Oxyhgb 79.6 % (93.0-99.0); Arterial HCO3 33.8 mmol/L (22.0-26.0); Arterial MetHb 0.2 % (0.0-1.5); Arterial pCO2 51.4 mmhg (35-45); MODE ROOM AIR; Site Right Radial
== END | disposition home or self-care (01) ==
LOC: PUL 13:48
DX: J44.9 Chronic obstructive pulmonary disease, unspecified (principal)
CPT/HCPCS: 36600; 82803